=== PATIENT | male | born 1960 | race African-American/Black ===

== ENCOUNTER 2021-11-07 16:43 | Emergency (ER) | payer OTHER ==
[~2021-11-07] VITALS: Ht 162.6 cm; Wt 75.0 kg
[2021-11-07] MEDS ORDERED: BACITRACIN 28 GM OINTMENT TP ONE (17:30)
[2021-11-07] MEDS ORDERED: CEPHALEXIN MONOHYDRATE 500 MG CAPSULE PO ONE (17:30)
[2021-11-07] MEDS ORDERED: TERB250T90 PO ×2 (17:31→19:24)
[2021-11-07] MEDS ORDERED: CEPH-558 PO ×2 (17:31→19:24)
[2021-11-07 18:24] VITALS: BP 155/90
[2021-11-07] MEDS ORDERED: IBUPROFEN 600 MG TABLET PO ONE (19:15)
== END 2021-11-07 18:50 | disposition home or self-care (01) ==
LOC: EMS 16:45
DX: L03.032 Cellulitis of left toe (principal); B35.1 Tinea unguium; E11.9 Type 2 diabetes mellitus without complications; Z89.611 Acquired absence of right leg above knee; Z91.041 Radiographic dye allergy status
CPT/HCPCS: 99283